=== PATIENT | female | born 1995 | race Hispanic/Latino ===

== ENCOUNTER 2017-10-28 14:03 | Emergency (ER) | payer BC ==
[2017-10-28 15:51] LABS: Bilirubin Negative (Negative); Blood, Urine Negative (Negative); Glucose, Urine (Dipstick) 100 mg/dL (Negative); Ketone, Urine Negative (Negative); Nitrite Negative (Negative); Protein, Urine (Dipstick) 30 mg/dL (Neg-Trace)
[2017-10-28 15:52] LABS: Bacteria/HPF 1+ HPF (None Seen); Hyaline Casts/LPF 4-6 HYALINE CAST LPF (0-3 Hyaline)
[2017-10-28 16:04] LABS: RBC/HPF 0-3 HPF (0-3); Renal Epithelial 0-3 HPF (0-3); Transitional Epithelial 0-3 HPF (0-3)
== END 2017-10-28 17:07 | disposition home or self-care (01) ==
LOC: ERS 14:03
DX: N39.0 Urinary tract infection, site not specified (principal); K21.9 Gastro-esophageal reflux disease without esophagitis; F17.210 Nicotine dependence, cigarettes, uncomplicated
CPT/HCPCS: 81003; 81015; 81025; 87086; 99284

== ENCOUNTER 2017-11-22 11:16 | Emergency (ER) | payer BC | END 2017-11-22 12:32 | disposition home or self-care (01) | LOC: ERS 11:16 | DX: J40 Bronchitis, not specified as acute or chronic (principal); K21.9 Gastro-esophageal reflux disease without esophagitis; F32.9 Major depressive disorder, single episode, unspecified; F17.210 Nicotine dependence, cigarettes, uncomplicated; Z71.6 Tobacco abuse counseling | CPT/HCPCS: 99406 ==

== ENCOUNTER 2018-05-08 17:14 | Emergency (ER) | payer BC ==
[2018-05-08 17:41] LABS: Clarity Slightly Cloudy (Clear)
[2018-05-08 17:43] LABS: Specific Gravity, Urine 1.025 (1.002-1.036)
[2018-05-08 17:46] LABS: Pregnancy Test - Urine (BHCG) Negative (Negative); Pregu Control Background? CLEAR/WHITE (CLR/WHITE); Pregu Control Bar Appear? YES (CONTROL BAR); Specific Gravity 1.025 (1.002-1.036)
[2018-05-08 17:50] LABS: Bacteria/HPF 1+ HPF (None Seen); RBC/HPF 0-3 HPF (0-3); Renal Epithelial 0-3 HPF (0-3)
[2018-05-09 20:16] LABS: Chlamydia by PCR Not Detected (NotDetected); GC by PCR Not Detected (NotDetected)
== END 2018-05-08 18:12 | disposition home or self-care (01) ==
LOC: SCSER 17:14
DX: N76.0 Acute vaginitis (principal); K21.9 Gastro-esophageal reflux disease without esophagitis; F32.9 Major depressive disorder, single episode, unspecified; F17.210 Nicotine dependence, cigarettes, uncomplicated
CPT/HCPCS: 81003; 81015; 81025; 87480; 87491; 87510; 87591; 87660; 99283

== ENCOUNTER 2018-11-03 12:40 | Emergency (ER) | payer BC ==
[2018-11-03] MEDS ORDERED: Ketorolac Tromethamine 60 MG/2 ML VIAL ONE (14:07)
[2018-11-03] MEDS ORDERED: Lorazepam 2 MG/ML VIAL ONE (14:07)
[2018-11-03] MEDS ORDERED: Fentanyl 100 MCG/2 ML VIAL ONE (14:07)
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
== END 2018-11-03 16:01 | disposition home or self-care (01) ==
LOC: ERS 12:40
DX: M54.12 Radiculopathy, cervical region (principal); K21.9 Gastro-esophageal reflux disease without esophagitis; F32.9 Major depressive disorder, single episode, unspecified; F17.210 Nicotine dependence, cigarettes, uncomplicated; Z79.51 Long term (current) use of inhaled steroids; Z79.899 Other long term (current) drug therapy; V89.2XXA Person injured in unspecified motor-vehicle accident, traffic, initial encounter
CPT/HCPCS: 72125; 96372; J1885; J2060; J3010

== ENCOUNTER 2018-12-06 14:51 | Emergency (ER) | payer BC ==
[2018-12-06 15:55] LABS: Bilirubin Negative (Negative); Blood, Urine Negative (Negative); Clarity Clear (Clear); Glucose, Urine (Dipstick) Negative (Negative); Leukocyte Negative (Negative); Nitrite Negative (Negative); Protein, Urine (Dipstick) Trace mg/dL (Neg-Trace); Specific Gravity, Urine 1.025 (1.005-1.030); Urobilinogen 0.2 mg/dL (0.2-1.0); pH, Urine 6.5 (5.0-9.0)
[2018-12-06 15:56] LABS: Pregnancy Test - Urine (BHCG) Negative (Negative); Pregu Control Background? CLEAR/WHITE (CLR/WHITE); Pregu Control Bar Appear? YES (CONTROL BAR); Specific Gravity 1.025 (1.002-1.036)
[2018-12-06 15:59] LABS: ALT (SGPT) 40 U/L (8-55); AST (SGOT) 25 U/L (5-34); Alkaline Phosphatase 109 U/L (40-150); Anion Gap 12 mmol/L (10-20); BUN (Urea Nitrogen) 11 mg/dL (7.0-18.7); Band 3 % (5-11); Bilirubin, Total 0.5 mg/dL (0.2-1.2); Calc. Creatinine Clearance 0 mL/min (70-130); Calcium 9.1 mg/dL (7.8-10.44); Carbon Dioxide 23 mmol/L (22-29); Chloride 107 mmol/L (98-107); Eosinophils 2 % (0-10); Estimated GFR-MDRD Greater than 90; Glucose 104 mg/dL (70-105); Hemoglobin 11.8 g/dL (12.0-16.0); Lipase 11 U/L (8-78); Lymphocytes 41 % (21-51); MDiff Complete? YES; Mean Corpuscular HGB CONC 32.4 g/dL (32.0-36.0); Mean Corpuscular Hemoglobin 27.9 pg (27.0-31.0); Mean Corpuscular Volume 86.1 fL (78.0-98.0); Mean Platelet Volume 8.5 fL (7.4-10.4); Monocytes 8 % (0-10); Neutrophil 41 % (42-75); Platelet Count 187 thou/uL (130-400); Platelet Morphology Comment Appears Adequate; Potassium 3.9 mmol/L (3.5-5.1); RBC Distribution Width 12.5 % (11.5-14.5); Reactive Lymphocytes 4 % (0-10); Red Blood Cell (RBC) Count 4.23 mill/uL (4.20-5.40); Sodium 138 mmol/L (136-145); White Blood Cell (WBC) Count 3.8 thou/uL (4.8-10.8)
--- NOTE | 2018-12-06 16:33 | CT ---
CT ABDOMEN AND PELVIS WITH CONTRAST: 12/06/18 Multiple axial tomograms obtained through the abdomen and pelvis with IV enhancement. INDICATIONS: Right lower quadrant pain. Comparison made to a prior CT abdomen and pelvis dated 2012. FINDINGS: The lung bases are clear. Liver, spleen, and pancreas unremarkable. Adrenal glands normal. Kidneys unremarkable. No evidence of urinary tract calculus. The urinary bladder is contacted and not well evaluated. There are tiny gas pockets seen within the bladder lumen along the anterior wall of the bladder. Has there been recent bladder instrumentation? Small bowel loops are normal caliber. Appendix appears normal. Colon unremarkable. The right ovary is enlarged and there appear to be multiple follicular cysts in the right ovary. Foll icular cysts are also seen in the left ovary, although the left ovary is smaller. One or two right fo llicular cysts measuring in the 1 cm range. There is a tiny amount of free fluid in the cul-de-sac. No adenopathy. IMPRESSION: 1. Mild prominence of the right ovary with several prominent follicular cysts. 2. Tiny amount of free fluid in the cul-de-sac. 3. Contracted bladder. Tiny gas pockets are seen in this contracted bladder. Recommend clinical correlation regarding recent bladder instrumentation. POS: [facility]
== END 2018-12-06 16:31 | disposition home or self-care (01) ==
LOC: SCSER 14:51
DX: N83.201 Unspecified ovarian cyst, right side (principal); K21.9 Gastro-esophageal reflux disease without esophagitis; F32.9 Major depressive disorder, single episode, unspecified; F17.210 Nicotine dependence, cigarettes, uncomplicated; Z79.899 Other long term (current) drug therapy
CPT/HCPCS: 74177; 80053; 81003; 81025; 83690; 85025

== ENCOUNTER 2018-12-07 14:14 | Outpatient (CLI) | payer BC ==
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
== END 2018-12-07 14:15 | disposition home or self-care (01) ==
LOC: TBSIIMAG 14:14
PROVIDERS: ATTEND Neurological Surgery
DX: M54.12 Radiculopathy, cervical region (principal)

== ENCOUNTER 2019-06-10 22:52 | Emergency (ER) | payer BC ==
[2019-06-10] MEDS ORDERED: Ondansetron PF 4 MG/2 ML Vial ONE (23:38)
[2019-06-10] MEDS ORDERED: Activated Charcoal/Sorbitol 25 GM/120 ML TUBE ONE (23:38)
[2019-06-10 23:44] LABS: Bacteria/HPF None Seen HPF (None Seen); Bilirubin Negative (Negative); Blood, Urine Negative (Negative); Clarity Clear (Clear); Glucose, Urine (Dipstick) 300 mg/dL (Negative); Leukocyte Negative Leu/uL (Negative); Nitrite Negative (Negative); Protein, Urine (Dipstick) 30 mg/dL (Neg-Trace); RBC/HPF 0-3 HPF (0-3); Squamous Epithelial 0-3 HPF (0-3); Urobilinogen Normal mg/dL (Less than 2); WBC/HPF 0-3 HPF (0-3)
[2019-06-10 23:50] LABS: #Lymphocytes 1.2 thou/uL (1.20-3.40); #Monocytes 0.3 thou/uL (0.11-0.59); #Neutrophils 2.1 thou/uL (1.40-6.50); %Basophils 0.5 % (0.0-1.0); %Eosinophils 0.1 % (0.0-10.0); %Lymphocytes 33.6 % (21.0-51.0); %Monocytes 9.2 % (0.0-10.0); %Neutrophils 56.7 % (42.0-75.0); Hemoglobin 12.4 g/dL (12.0-16.0); Mean Corpuscular HGB CONC 35.2 g/dL (32.0-36.0); Mean Corpuscular Hemoglobin 27.7 pg (27.0-31.0); Mean Corpuscular Volume 78.5 fL (78.0-98.0); Platelet Count 209 thou/uL (130-400); Red Blood Cell (RBC) Count 4.49 mill/uL (4.20-5.40); White Blood Cell (WBC) Count 3.6 thou/uL (4.8-10.8)
[2019-06-10 23:53] LABS: Amphetamine Not Detected (NotDetected); Barbiturates Screen Not Detected (NotDetected); Benzodiazepine Screen Not Detected (NotDetected); Cocaine Metabolite Screen Detected (NotDetected); Medtox Control Line Valid? VALID (VALID); Medtox Reader # READER 4; Methadone Not Detected (NotDetected); Methamphetamine Not Detected (NotDetected); Opiate Screen Not Detected (NotDetected); Oxycodone Screen Not Detected (NotDetected); Phencyclidine (PCP) Not Detected (NotDetected); THC/Cannabinoid Screen Not Detected (NotDetected); Tricyclic Screen Not Detected (NotDetected)
[2019-06-11 00:13] LABS: ALT (SGPT) 40 U/L (8-55); AST (SGOT) 33 U/L (5-34); Acetaminophen Less than 6.0 mcg/mL (10.0-30.0); Albumin 4.3 g/dL (3.5-5.0); Alcohol 156 mg/dL (Less than 10); Alkaline Phosphatase 125 U/L (40-150); Anion Gap 13 mmol/L (10-20); BUN (Urea Nitrogen) 6 mg/dL (7.0-18.7); Bilirubin, Total 0.4 mg/dL (0.2-1.2); Calc. Creatinine Clearance 0 mL/min (70-130); Calcium 9.3 mg/dL (7.8-10.44); Carbon Dioxide 20 mmol/L (22-29); Chloride 108 mmol/L (98-107); Estimated GFR-MDRD Greater than 90; Globulin 3.6 g/dL (2.4-3.5); Glucose 130 mg/dL (70-105); Potassium 3.4 mmol/L (3.5-5.1); Protein, Total 7.9 g/dL (6.0-8.3); Salicylate Less than 8.0 mg/dL (15.0-30.0); Sodium 138 mmol/L (136-145)
[2019-06-11 03:50] LABS: Acetaminophen Less than 6.0 mcg/mL (10.0-30.0)
== END 2019-06-11 07:02 | disposition home or self-care (01) ==
LOC: ERS 22:52
DX: T43.212A Poisoning by selective serotonin and norepinephrine reuptake inhibitors, intentional self-harm, initial encounter (principal); T39.312A Poisoning by propionic acid derivatives, intentional self-harm, initial encounter; T39.1X2A Poisoning by 4-Aminophenol derivatives, intentional self-harm, initial encounter; F10.10 Alcohol abuse, uncomplicated; F32.9 Major depressive disorder, single episode, unspecified; K21.9 Gastro-esophageal reflux disease without esophagitis; Z79.899 Other long term (current) drug therapy
CPT/HCPCS: 36415; 80053; 80306; 80307; 81003; 81015; 82550; 84443; 85025; 93005; 94760; 96361; 96374; J2405

== ENCOUNTER 2019-08-21 14:51 | Emergency (ER) | payer BC ==
[2019-08-21] MEDS ORDERED: Ketorolac Tromethamine 30 MG/ML VIAL ONE (15:51)
[2019-08-21] MEDS ORDERED: Ondansetron ODT 4 MG TAB ONE (15:51)
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
[2019-08-21] MEDS ORDERED: Cyclobenzaprine 10 MG TAB ONE (17:45)
== END 2019-08-21 18:01 | disposition home or self-care (01) ==
LOC: ERS 14:51
DX: S16.1XXA Strain of muscle, fascia and tendon at neck level, initial encounter (principal); K21.9 Gastro-esophageal reflux disease without esophagitis; F32.9 Major depressive disorder, single episode, unspecified; V43.52XA Car driver injured in collision with other type car in traffic accident, initial encounter
CPT/HCPCS: 72125; 72141; 96372; J1885; Q0162

== ENCOUNTER 2020-09-01 08:00 | Emergency (ER) | payer SELFPAY ==
[2020-09-01 16:37] LABS: SARS-CoV-2 MS2 Positive; SARS-CoV-2 N Gene Negative; SARS-CoV-2 S Gene Negative; SARS-CoV-2 by NAA Not Detected (NotDetected); SARS-CoV-2 orf1ab Negative
== END 2020-09-01 10:19 | disposition home or self-care (01) ==
LOC: ERS 08:00
DX: U07.1 COVID-19 (principal); J06.9 Acute upper respiratory infection, unspecified; J02.9 Acute pharyngitis, unspecified; K21.9 Gastro-esophageal reflux disease without esophagitis; F32.9 Major depressive disorder, single episode, unspecified
CPT/HCPCS: 87081; 87430; 87635; 87804; 99283; U0003

== ENCOUNTER 2021-03-03 07:52 | Emergency (ER) | payer SELFPAY | END 2021-03-03 10:09 | disposition home or self-care (01) | LOC: ERS 07:52 | DX: H60.392 Other infective otitis externa, left ear (principal) | CPT/HCPCS: 99282 ==

== ENCOUNTER 2021-06-27 19:43 | Emergency (ER) | payer SELFPAY ==
[2021-06-27] MEDS ORDERED: Acetaminophen 500 MG TAB ONE (20:00)
[2021-06-27 20:25] LABS: #Lymphocytes 1.7 thou/uL (1.20-3.40); #Monocytes 0.3 thou/uL (0.11-0.59); #Neutrophils 2.1 thou/uL (1.40-6.50); %Basophils 0.2 % (0.0-1.0); %Eosinophils 1.2 % (0.0-10.0); %Lymphocytes 41.1 % (21.0-51.0); %Neutrophils 50.5 % (42.0-75.0); Hemoglobin 13.7 g/dL (12.0-16.0); Mean Corpuscular Hemoglobin 30.7 pg (27.0-31.0); Mean Corpuscular Volume 87.5 fL (78.0-98.0); Mean Platelet Volume 8.6 fL (7.4-10.4); Platelet Count 142 thou/uL (130-400); RBC Distribution Width 11.4 % (11.5-14.5); Red Blood Cell (RBC) Count 4.45 mill/uL (4.20-5.40); White Blood Cell (WBC) Count 4.1 thou/uL (4.8-10.8)
[2021-06-27 20:46] LABS: ALT (SGPT) 158 U/L (8-55); AST (SGOT) 92 U/L (5-34); Albumin 4.2 g/dL (3.5-5.0); Alkaline Phosphatase 173 U/L (40-110); Anion Gap 15 mmol/L (10-20); BUN (Urea Nitrogen) 7 mg/dL (7.0-18.7); Bilirubin, Total 0.7 mg/dL (0.2-1.2); CRP (Inflammatory) 6.15 mg/dL (= or < 0.5); Calc. Creatinine Clearance 0 mL/min (70-130); Carbon Dioxide 22 mmol/L (22-29); Chloride 105 mmol/L (98-107); Globulin 3.8 g/dL (2.4-3.5); Glucose 129 mg/dL (70-105); Potassium 3.3 mmol/L (3.5-5.1); Sodium 139 mmol/L (136-145)
[2021-06-27 21:52] LABS: SARS-CoV-2 NAA Rapid Test DETECTED (NotDetected)
[2021-06-27] MEDS ORDERED: Dexamethasone 4 mg/ml Vial ONE ×2 (22:00→22:02)
== END 2021-06-27 22:28 | disposition home or self-care (01) ==
LOC: ERS 19:43
DX: U07.1 COVID-19 (principal)
CPT/HCPCS: 0240U; 71045; 80053; 85025; 85652; 86140; 93005; J1100

== ENCOUNTER 2021-12-20 03:05 | Emergency (ER) | payer BC, SELFPAY ==
[2021-12-20 04:12] LABS: #Eosinphils 0.1 thou/uL (0.0-0.7); #Lymphocytes 2.3 thou/uL (1.20-3.40); #Monocytes 0.4 thou/uL (0.11-0.59); #Neutrophils 6.2 thou/uL (1.40-6.50); %Basophils 0.3 % (0.0-1.0); %Eosinophils 1.6 % (0.0-10.0); %Lymphocytes 25.7 % (21.0-51.0); %Monocytes 4.1 % (0.0-10.0); %Neutrophils 68.3 % (42.0-75.0); Hemoglobin 14.1 g/dL (12.0-16.0); Mean Corpuscular HGB CONC 35.5 g/dL (32.0-36.0); Mean Corpuscular Hemoglobin 30.9 pg (27.0-31.0); Mean Corpuscular Volume 87.2 fL (78.0-98.0); Mean Platelet Volume 7.9 fL (7.4-10.4); Platelet Count 245 thou/uL (130-400); RBC Distribution Width 11.3 % (11.5-14.5); Red Blood Cell (RBC) Count 4.55 mill/uL (4.20-5.40)
[2021-12-20 04:27] LABS: Pregnancy Test - Urine (BHCG) Negative (Negative); Pregu Control Background? CLEAR/WHITE (CLR/WHITE); Pregu Control Bar Appear? YES (CONTROL BAR); Specific Gravity 1.002 (1.002-1.036)
[2021-12-20 04:28] LABS: Amphetamine Not Detected (NotDetected); Barbiturates Screen Not Detected (NotDetected); Benzodiazepine Screen Not Detected (NotDetected); Cocaine Metabolite Screen Not Detected (NotDetected); Methadone Not Detected (NotDetected); Methamphetamine Not Detected (NotDetected); Opiate Screen Not Detected (NotDetected); Oxycodone Screen Not Detected (NotDetected); Phencyclidine (PCP) Not Detected (NotDetected); THC/Cannabinoid Screen Not Detected (NotDetected); Tricyclic Screen Not Detected (NotDetected)
[2021-12-20 04:31] LABS: Acetaminophen Less than 6.0 mcg/mL (10.0-30.0); Alcohol 206 mg/dL (Less than 10); Salicylate Less than 8.0 mg/dL (15.0-30.0)
[2021-12-20 04:33] LABS: ALT (SGPT) 43 U/L (8-55); AST (SGOT) 25 U/L (5-34); Albumin 4.5 g/dL (3.5-5.0); Alkaline Phosphatase 91 U/L (40-110); Anion Gap 16 mmol/L (10-20); BUN (Urea Nitrogen) 7 mg/dL (7.0-18.7); Bilirubin, Total 0.4 mg/dL (0.2-1.2); Calc. Creatinine Clearance 0 mL/min (70-130); Calcium 9.4 mg/dL (7.8-10.44); Carbon Dioxide 18 mmol/L (22-29); Chloride 108 mmol/L (98-107); Globulin 3.7 g/dL (2.4-3.5); Glucose 216 mg/dL (70-105); Potassium 3.5 mmol/L (3.5-5.1); Protein, Total 8.2 g/dL (6.0-8.3); Sodium 138 mmol/L (136-145)
[2021-12-20 15:29] LABS: SARS-CoV-2 PCR by NAA Not Detected (NotDetected)
== END 2021-12-20 12:14 | disposition home or self-care (01) ==
LOC: ERS 03:05
DX: F10.129 Alcohol abuse with intoxication, unspecified (principal); F43.20 Adjustment disorder, unspecified
CPT/HCPCS: 36415; 80053; 80306; 80307; 81025; 85025; 99284; U0003; U0005

== ENCOUNTER 2022-07-05 08:10 | Emergency (ER) | payer BC, SELFPAY | END 2022-07-05 09:11 | disposition home or self-care (01) | LOC: ERS 08:10 | DX: U07.1 COVID-19 (principal); J06.9 Acute upper respiratory infection, unspecified | CPT/HCPCS: 87804; 99283; U0003; U0005 ==